=== PATIENT | male | born 1945 | race Caucasian/White ===

== ENCOUNTER 2018-06-03 15:05 | Inpatient (IN) | payer OTHER, MEDICARE ==
--- NOTE | 2018-06-03 15:50 | EDPHY ---
H & P Time Seen by Provider: 06/03/18 15:30 HPI/ROS: CHIEF COMPLAINT: Dizziness HISTORY OF PRESENT ILLNESS: Patient had an episode this morning when he felt dizzy at 7:30 a.m.. However he was able to walk and drive to his physical therapy appointment. He has been seeing physical therapy for the last 3 years after spine surgery. At the physical therapy office he got dizzy like he was going to"fall against the side"of the hallway and was slurring his words. When he laid down and went away after 2 or 3 min. He then drove himself to the primary care doctor's office and had a recurrent episode there of being dizzy and ataxic and expressive aphasia which lasted 2 or 3 min and went away when he lays down. Right now he says he just feels tired. Apparently his blood pressure was down to 92 systolic at his primary care office. Denies associated headache or weakness or numbness in extremities or visual symptoms. No chest pain or shortness of breath. REVIEW OF SYSTEMS: Eye: no change in vision ENT: no sore throat Cardiac: no chest pain or syncope Pulmonary: no cough or SOB Abdomen: no vomiting, diarrhea, abdominal pain Musculoskeletal: no back pain Skin: no rash Neuro: no headache Constitutional: no fever : no urinary symptoms A comprehensive 10 point review of systems is otherwise negative aside from elements mentioned in the history of present illness. PAST MEDICAL HISTORY: History of pulmonary embolism and DVT, and glaucoma, coronary disease, hypertension, hyperlipidemia. Spine surgery Social history: Here with spouse T 36.4 General Appearance: Alert and conversant, cooperative. Eyes: No scleral icterus. ENT, Mouth: Normal mucous membranes. Respiratory: Normal respiratory effort, breath sounds equal, lungs are clear to auscultation. Cardiovascular: irregular rate and rhythm. No murmur. Gastrointestinal: Abdomen is soft and non tender. Neurological: Alert, face symmetric, normal motor and sensory in extremities. [id number] normal bilaterally, no pronator drift, speech fluent. Skin: Warm and dry, no rashes. Musculoskeletal: No peripheral edema. Psychiatric: Not agitated. Emergency Department course/MDM: 1636: Negative head CT per Dr. Cardenas, discussed with Armando Greer, requested D-dimer screening for PE, admission and he will obtain cardiology consultation. D-dimer negative, head CT negative, symptoms resolved. Inpatient workup. Smoking Status: Former smoker Constitutional: Initial Vital Signs Heart Rate 66 06/03/18 15:09 Respiratory Rate 14 06/03/18 15:09 Blood Pressure 115/70 06/03/18 15:09 O2 Sat (%) 95 06/03/18 15:09 O2 Delivery Mode Room Air Allergies/Adverse Reactions: Sulfa (Sulfonamide Antibiotics) Allergy (Verified 06/03/18 15:13) sulfamethoxazole [From Bactrim] Allergy (Verified 06/03/18 15:13) trimethoprim [From Bactrim] Allergy (Verified 06/03/18 15:13) Home Medications: Medication Instructions Recorded Allopurinol [Allopurinol 300 MG 300 mg PO DAILY 07/24/15 (RX)] Bimatoprost 0.01% [Lumigan 0.01% 1 drop EACHEYE HS 07/24/15 (*)] Colestipol HCl [Colestid (*)] 3 gm PO BID 07/24/15 Dorzolamide HCl/Timolol Maleat 1 drop EACHEYE BID 07/24/15 [Cosopt Eye Drops] Ezetimibe [Zetia 10 MG (*)] 10 mg PO DAILY 07/24/15 Niacin [Slo-Niacin] 500 mg PO HS 07/24/15 Herbals/Supplements -Info Only 1 ea PO DAILY 06/03/18 Mupirocin [Mupirocin] 1 terence TP DAILY 06/03/18 [place]-3 Fatty Acids [Fish Oil 1000 2,000 mg PO HS 06/03/18 mg (*)] amLODIPine BESYLATE [Norvasc 5 mg 5 mg PO DAILY 06/03/18 (*)] clonazePAM [Clonazepam] 0.5 mg PO HS 06/03/18 Medical Decision Making - Diagnostics EKG Interpretation: 12-lead EKG interpreted by me; official reading is in computer system. My interpretation is atrial fibrillation rate of 56. Imaging Results: Imaging Impressions Head CT 06/03/18 15:45 Impression: No evidence for acute intracranial abnormality. Mild periventricular and deep hemispheric white matter change that can be seen with small vessel ischemic disease. Mild generalized cerebral atrophy. Results called to the ER and message left for Dr. Fabien Figueroa on 03 June 2018 at 1635 hours. Imaging: Discussed imaging studies w/ call worker Radiologist - Data Points Laboratory Results: Laboratory Results 06/03/18 15:40 06/03/18 15:40 06/03/18 06/03/18 06/03/18 15:44 15:41 15:40 WBC RBC Hgb POC Hgb 16.0 gm/dL gm/dL (13.7-17.5) Hct POC Hct 47 % % (40-51) MCV MCH MCHC RDW Plt Count MPV Neut % (Auto) Lymph % (Auto) [place] % (Auto) Eos % (Auto) Baso % (Auto) Nucleat RBC Rel Count Absolute Neuts (auto) Absolute Lymphs (auto) Absolute Monos (auto) Absolute Eos (auto) Absolute Basos (auto) Absolute Nucleated RBC Immature Gran % Immature Gran # PT INR APTT D-Dimer POC Sodium 136 mEq/L mEq/L (135-145) Sodium POC Potassium 3.7 mEq/L mEq/L (3.3-5.0) Potassium POC Chloride 99 mEq/L mEq/L (97-110) Chloride Carbon Dioxide Anion Gap POC BUN 16 mg/dL mg/dL (7-23) BUN Creatinine POC Creatinine 1.2 mg/dL mg/dL (0.7-1.3) Estimated GFR Glucose POC Glucose 95 mg/dL mg/dL (70-100) Calcium POC Troponin I 0.01 ng/mL ng/mL (0.00-0.08) NT-Pro-B Natriuret Pep 3120 pg/mL H pg/mL (0-450) 06/03/18 06/03/18 06/03/18 15:40 15:40 15:40 WBC 5.41 10^3/uL 10^3/uL (3.80-9.50) RBC 4.92 10^6/uL 10^6/uL (4.40-6.38) Hgb 16.0 g/dL g/dL (13.7-17.5) POC Hgb Hct 44.8 % % (40.0-51.0) POC Hct MCV 91.1 fL fL (81.5-99.8) MCH 32.5 pg pg (27.9-34.1) MCHC 35.7 g/dL g/dL (32.4-36.7) RDW 14.3 % % (11.5-15.2) Plt Count 95 10^3/uL L 10^3/uL (150-400) MPV 9.4 fL fL (8.7-11.7) Neut % (Auto) 56.3 % % (39.3-74.2) Lymph % (Auto) 31.4 % % (15.0-45.0) [place] % (Auto) 7.9 % % (4.5-13.0) Eos % (Auto) 3.1 % % (0.6-7.6) Baso % (Auto) 1.1 % % (0.3-1.7) Nucleat RBC Rel Count 0.0 % % (0.0-0.2) Absolute Neuts (auto) 3.04 10^3/uL 10^3/uL (1.70-6.50) Absolute Lymphs (auto) 1.70 10^3/uL 10^3/uL (1.00-3.00) Absolute Monos (auto) 0.43 10^3/uL 10^3/uL (0.30-0.80) Absolute Eos (auto) 0.17 10^3/uL 10^3/uL (0.03-0.40) Absolute Basos (auto) 0.06 10^3/uL 10^3/uL (0.02-0.10) Absolute Nucleated RBC 0.00 10^3/uL 10^3/uL (0-0.01) Immature Gran % 0.2 % % (0.0-1.1) Immature Gran # 0.01 10^3/uL 10^3/uL (0.00-0.10) PT 14.0 SEC SEC (12.0-15.0) INR 1.06 (0.83-1.16) APTT 26.2 SEC SEC (23.0-38.0) D-Dimer < 0.27 ug/mLFEU ug/mLFEU (0.00-0.50) POC Sodium Sodium 134 mEq/L L mEq/L (135-145) POC Potassium Potassium 3.9 mEq/L mEq/L (3.3-5.0) POC Chloride Chloride 99 mEq/L mEq/L (97-110) Carbon Dioxide 25 mEq/l mEq/l (22-31) Anion Gap 10 mEq/L mEq/L (8-16) POC BUN BUN 17 mg/dL mg/dL (7-23) Creatinine 1.2 mg/dL mg/dL (0.7-1.3) POC Creatinine Estimated GFR 59 Glucose 95 mg/dL mg/dL (70-100) POC Glucose Calcium 9.3 mg/dL mg/dL (8.5-10.4) POC Troponin I NT-Pro-B Natriuret Pep Medications Given: Sodium Chloride (Ns) 1,000 mls @ 100 mls/hr IV CONT JENARO Stop: 11/30/18 17:44 Last Admin: 06/03/18 18:01 Dose: 1,000 mls Discontinued Medications Rivaroxaban (Xarelto) 20 mg PO DAILY JENARO Stop: 11/30/18 17:59 Last Admin: 06/03/18 18:18 Dose: 20 mg Point of Care Test Results: Chemistry 06/03/18 06/03/18 15:44 15:41 POC Sodium 136 mEq/L mEq/L (135-145) POC Potassium 3.7 mEq/L mEq/L (3.3-5.0) POC Chloride 99 mEq/L mEq/L (97-110) POC BUN 16 mg/dL mg/dL (7-23) POC Creatinine 1.2 mg/dL mg/dL (0.7-1.3) POC Glucose 95 mg/dL mg/dL (70-100) POC Troponin I 0.01 ng/mL ng/mL (0.00-0.08) ISTAT H&H 06/03/18 15:44 POC Hgb 16.0 gm/dL gm/dL (13.7-17.5) POC Hct 47 % % (40-51) Departure - Departure Disposition: [facility] Inpatient Acute Clinical Impression: Dizziness Atrial fibrillation Qualifiers: Atrial fibrillation type: unspecified Qualified Code(s): I48.91 - Unspecified atrial fibrillation Condition: Fair
--- NOTE | 2018-06-03 15:55 | CPEKG ---
Test Reason : OPEN Blood Pressure : / mmHG Vent. Rate : 056 BPM Atrial Rate : 000 BPM P-R Int : 197 ms QRS Dur : 092 ms QT Int : 420 ms P-R-T Axes : 000 -14 023 degrees QTc Int : 406 ms Atrial fibrillation Confirmed by Fabien Figueroa ([id number]) on 06/03/2018 3:54:55 PM Referred By: Confirmed By:Fabien Figueroa
[2018-06-03 16:30] LABS: PLATELET COUNT 95 10^3/uL (150-400)
[2018-06-03 16:40] LABS: INR 1.06 (0.83-1.16)
[2018-06-03] MEDS ORDERED: ACETAMINOPHEN 325 MG TAB PO PRN (17:37)
[2018-06-03] MEDS ORDERED: ONDANSETRON 4 MG/2 ML VIAL IVP PRN (17:37)
[2018-06-03] MEDS ORDERED: ONDANSETRON DISINTEGRATING 4 MG TAB PO PRN (17:37)
[2018-06-03] MEDS ORDERED: diphenhydrAMINE 25 MG CAP PO PRN (17:37)
[2018-06-03] MEDS ORDERED: LORazepam 0.5 MG TAB PO PRN (17:37)
[2018-06-03] MEDS ORDERED: RIVAROXABAN 20 MG TAB PO SCH (18:00)
[2018-06-03] MEDS: NS 1,000 ML IV SCH (18:01)
--- NOTE | 2018-06-03 18:39 | SOAPPROG ---
[facility] Progress Note Assessment/Plan: Assessment: Cardiology consultation performed and dictated. 73 y/o man with CAD by EBCT scans and moderate PAD with 3-5 weeks of dizziness, worsening LAL and fatigue. Found today to be in afib with ventricular rates 40- 50bpm. Usually can walk 2-4 miles. Denies syncope or CP IMP/PLAN: 1)afib with slow ventricular rate REC: 1)start Xarelto 20mg PO qam. 2)transthoracic echo in AM to evaluate LVEF and valvular function 3)NPO after clear liquid breakfast 4)probably SAMIRA/CV tomorrow late morning or in afternoon 5)may need permanent pacemaker 6)check TSH and troponin in AM Thanks. Will follow with you. 06/03/18 18:36 Objective: Vital Signs Temp Pulse Resp BP Pulse Ox 36.4 C 60 18 110/63 96 06/03/18 17:47 06/03/18 17:47 06/03/18 17:47 06/03/18 17:47 06/03/18 17:47 PT 14.0 SEC (12.0-15.0) 06/03/18 15:40 INR 1.06 (0.83-1.16) 06/03/18 15:40 ICD10 Worksheet Patient Problems: Problems Problem Status Onset Atrial fibrillation Acute Dizziness Acute C. difficile diarrhea Acute 11/04/15 Clostridium difficile infection Acute Lumbar back pain Acute Lumbar stenosis Acute
--- NOTE | 2018-06-03 19:03 | SOAPPROG ---
SOAP Progress Note Assessment/Plan: Assessment: Plan: 06/03/18 19:01 symptomatic jonas a fib with hypotension. Appreciate cardiology input. Plan echo/TTE/poss CV consider pacer if not improving with rate. I believe his timolol eye drops are aggravating the jonas, will hold for now. + h/o profound jonas with Bystolic. See h&P Subjective: Admits to fatigue/weakness/dizziness this am. Objective: Vital Signs Temp Pulse Resp BP Pulse Ox 36.4 C 60 18 110/63 96 06/03/18 17:47 06/03/18 17:47 06/03/18 17:47 06/03/18 17:47 06/03/18 17:47 PT 14.0 SEC (12.0-15.0) 06/03/18 15:40 INR 1.06 (0.83-1.16) 06/03/18 15:40 Gen: fatigued earlier, better now HEENT: less projected anxiety now than earlier, pupils quite dilated in office Lungs: diminished but clear Bilaterally Heart: irreg irreg with jonas. Office EKG afib with rate of 44 no ischemic changes Abd + bs soft LE's trace edema Skin RLE wound with gradual marked improvement ICD10 Worksheet Patient Problems: Problems Problem Status Onset Atrial fibrillation Acute Dizziness Acute C. difficile diarrhea Acute 11/04/15 Clostridium difficile infection Acute Lumbar back pain Acute Lumbar stenosis Acute
[2018-06-03] MEDS: MUPIROCIN 2% 22 GM OINT TP SCH (19:43)
--- NOTE | 2018-06-03 20:00 | GHP ---
DATE OF ADMISSION: 06/03/2018 REASON FOR ADMISSION: Symptomatic new finding of atrial fibrillation with bradycardia and hypotensio n. HISTORY OF PRESENT ILLNESS: The patient states he was feeling well until he woke up this morning wit h a feeling of lethargy, tiredness, and dizziness. His checked his blood pressure and found him to be around 90-105 systolic, with a slower heart rate. He was encouraged to eat more salty foods a nd drink more water. This did not improve his symptoms, and he came into the office today. In prese ntation to the office, he was quite weak, needing some assistance walking down the hallway. His satu ration was 89%. His distal extremities were somewhat cool. He looked uncomfortable. He was a bit b ewildered and below his typical bright neurologically intact self. He was not able to pronounce the medicines he was typically taking while in the sitting position but could pronounce them easily while lying down. He was found to be quite bradycardic on auscultation, and EKG confirmed atrial fibrilla tion with a heart rate of 44 beats per minute. In office blood pressure in the 80s to 90s systolic, diastolic pressures in the 50s and 60s. Given these findings, he was sent to the ER for further eval uation. In the ER, findings were confirmed. Blood pressure was a bit more improved. D-dimer was ne gative as there was some outside concern for a pulmonary emboli. He is admitted given his symptoms, and will be having cardiology consultation. ALLERGIES: Sulfa, antibiotics. CURRENT MEDICATIONS: Include mupirocin ointment to wound, timolol-based eye drops 2 drops twice a da y bilateral eyes, clonazepam 0.5 mg at bedtime, vitamin D 2000 international units daily, prebiotic a nd probiotic treatment daily, Colace p.r.n. constipation, fish oil high dose 2 tablets twice a day, i buprofen p.r.n. pain, magnesium 2 tablets daily, niacin 500 mg daily, Lumigan eye drops once daily ellen th eyes, colestipol 1 g 3 tablets twice a day, allopurinol 300 mg daily, Zetia 10 mg daily, amlodipin e 2.5 mg daily. PAST SURGICAL HISTORY: Laminectomy/microdiskectomy in 1983, oral surgery for his gums, laser surgery for glaucoma, spinal surgery more recently. SOCIAL HISTORY: Non-tobacco user. Alcohol moderate consumption intermittently. FAMILY HISTORY: Father at 78 from pneumonia. Mother at 86 from probable small stroke. He has a sister who has autism, in her late 70s. He was born in [place]. REVIEW OF SYSTEMS: He admits to fatigue over the past several weeks. He has been dealing with a sev ere laceration to his right lower extremity that was repaired in the ER with complicated sutures and then wound management has been gradually improving. He has been on lots of antibiotics for this wanda tment. He has not had fever or chills. He admits lightheadedness today. No headache. He denies ac quinault visual change. He has noted some speaking dysfunction acutely today. This seems to be intermitt ent. He does admit to a vague sense of shortness of breath with exertion. He also admits to a vague sense of chest pressure that is intermittent. Nothing heavy pressing or constant. He did have an e pisode of nausea today. No vomiting. His appetite until today was fairly normal. No change in marilyn l pattern. He denies any unusual urinary symptoms. He has not had acute musculoskeletal complaints. Skin with his right lower extremity wound has been gradually improving. Underlying psoriasis has b een stable with photodynamic therapy treatments. PHYSICAL EXAMINATION: VITAL SIGNS: Blood pressure currently 110/63 in office, 80-90 systolic. Hear t rate currently 50 to 60 in office, 44 beats per minute. He is now 96% on room air. Temperature is 36.4. GENERAL: Pleasant, far more comfortable-appearing male. HEENT: Pupils are symmetric. Spee ch is intact and clear. Oropharynx is benign. NECK: Without masses. No jugular venous pressure el evation. LUNGS: Diminished breath sounds in bases, otherwise clear. HEART: Irregularly irregular rhythm with borderline bradycardia. No murmurs appreciated. ABDOMEN: Positive bowel sounds. Soft, nontender, nondistended. No guarding, rebound, or masses. SKIN: Warm, dry, intact. Healing wound with eschar. RIGHT LOWER EXTREMITY: Scattered psoriatic skin irritation, stable finding. MUSCULOSK ELETAL: Without acute joint erythema, warmth, or swelling. : Deferred. LABORATORY DATA: CBC: White count 5.41, hemoglobin 16.0, platelets 95. D-dimer is undetectable. I NR 1.06. Metabolic panel grossly unremarkable. Creatinine 1.2. Troponin negative at 0.01. CT head negative for acute intracranial abnormalities. EKG done in the ER: Atrial fibrillation with bradyc ardia. No ST-segment elevation. Rhythm rate 56 beats per minute. ASSESSMENT: 1. Bradycardia, hypotension, new atrial fibrillation, likely all linked together. I suspect his nanda olol eyedrops were aggravating the bradycardia. They are wearing out of the system at this point, wh ich may explain some of the improvement in his heart rate. He has had cardiology consultation with Drea Rosas. The plan is for transthoracic echocardiogram with followup SAMIRA and possible CV tomor row. This was discussed in detail with the patient, who is in agreement. If his bradycardia continu es, consideration for pacemaker placement. 2. History of hypertension, currently well controlled. 3. History of sensitivity to beta blockers including Bystolic, causing profound bradycardia as an ou tpatient, supporting possible link that timolol is adding to his symptomatology. Will hold his timol ol eyedrops for his glaucoma currently, and discuss this further with Dr. Centeno as an outpatient. 4. Psoriasis, stable. 5. Right lower extremity wound. This is improving. Will have wound care look at while he is in the hospital. Given the complexity of his current symptoms and findings, it is anticipated he will stay in the hosp ital for greater than 2 midnights. /[id number]/MODL
[2018-06-03] MEDS ORDERED: NIACIN ER 500 MG TAB.ER PO SCH (21:00)
[2018-06-03] MEDS ORDERED: clonazePAM 0.5 MG TAB PO SCH (21:00)
[2018-06-03] MEDS ORDERED: BIMATOPROST 0.01% 2.5 ML OPHT.BTL EACHEYE SCH (21:00)
[2018-06-03] MEDS ORDERED: OMEGA-3 FATTY ACIDS 1,000 MG CAP PO SCH (21:00)
[2018-06-03] MEDS: COLESTIPOL HCL 1 GM TAB PO SCH (21:44)
[2018-06-04 04:41] LABS: PLATELET COUNT 77 10^3/uL (150-400)
--- NOTE | 2018-06-04 05:52 | GCON ---
CARDIOLOGY CONSULT DATE OF CONSULTATION: 06/03/2018 REASON FOR CONSULTATION: Evaluate gentleman with 3-5 weeks of dizziness, worsening shortness of gee th and near syncope and fatigue, found to be in atrial fibrillation with bradycardia. HISTORY OF PRESENT ILLNESS: I was asked by Dr. Vipul Cabrera to consult for the above reasons. T he patient is a 73-year-old gentleman with a history of coronary atherosclerosis, followed by serial heart scans. He also has an abnormal vascular ROSANNA suggesting PAD. Otherwise, he has had no previous heart problems. He did have an echo in December of 2014, which demonstrated normal LV function with mild -to-moderate aortic insufficiency and mild tricuspid insufficiency. He normally can walk 2-4 miles w ithout symptoms. For the last 3-5 weeks, he feels he has had no energy with worsening dyspnea on exe rtion and dizzy spells. He called his PCP and went in today and was found to be in atrial fibrillati on with a ventricular rate of 40 to 50 beats per minute. He was admitted for further evaluation. He reports no syncope or TIA symptoms. Of note, he did cut his right beebe 5 weeks ago and has a mild c ellulitis, which has been improving. He reports no systemic fevers or chills. PAST MEDICAL HISTORY: Previous DVT with pulmonary embolus, hypertension, palpitations, PAD, coronary atherosclerosis, glaucoma and previous C difficile colitis. PAST SURGICAL HISTORY: Spine fusion in 2014. CURRENT MEDICATIONS: Allopurinol 300 mg per day, Xarelto 20 mg per day. ALLERGIES: Sulfa. SOCIAL HISTORY: Patient is . He does not smoke and has 2-3 glasses of wine per day. FAMILY HISTORY: Unremarkable for premature coronary artery disease. REVIEW OF SYSTEMS: The patient reports no recent fevers, chills, or weight change. He reports no GI bleed symptoms such as hematemesis, melena, or bright red blood per rectum. Rest of 10-point review of systems is negative. PHYSICAL EXAM: VITAL SIGNS: Afebrile, pulse 60 and irregularly irregular, blood pressure 110/63, re spirations 20, satting 96% on room air. GENERAL: A normal-appearing gentleman in no acute distress without chest pain or using accessory respiratory muscles. EYES: Pupils equal, reactive to light. E NT: Oral mucosa with no cyanosis. Jugular venous pressure to 7 cm. Carotid pulses 2+ bilaterally w ith no obvious bruits. No thyromegaly noted. LUNGS: Clear to auscultation bilaterally without rale s, rhonchi, or wheezing. HEART: Distant heart sounds, irregularly irregular with bradycardic rate. No obvious murmurs or S3 heard. ABDOMEN: Soft and nontender. No guarding or rebound. No obvious hepatosplenomegaly or ascites. EXTREMITIES: 1+ peripheral pulses including femoral and pedal pulses. No edema noted. MUSCULOSKELETAL: No scoliosis. NEURO: Normal affect and mood. SKIN: No cyanos is or bleeding. NECK: No nuchal rigidity. LABS: Sodium 134, potassium 3.9, chloride 99, bicarb 25, BUN 17, creatinine 1.2, glucose 95. Tropon in 0.01. Hematocrit 45. INR 1.06. IMPRESSION: A 73-year-old gentleman with 3-5 weeks of worsening dizziness, fatigue, and dyspnea on e xertion with near syncope. I am concerned if symptoms could be related to cardiac arrhythmias, eithe r his atrial fibrillation and/or symptomatic bradycardia needing a pacemaker soon. There is no sugge stion of heart failure or recent MN. RECOMMENDATIONS: 1. Agree with Xarelto 20 mg per day. 2. Would repeat a troponin level in the morning and check a TSH to make sure he is not hypothyroid. 3. Would recommend a transthoracic echocardiogram first thing in the morning to evaluate LV function and valvular function. 4. As long as there is no surprise of LV dysfunction or valvular abnormalities, would recommend he g et a SAMIRA cardioversion tomorrow afternoon. 5. He may come out of the cardioversion bradycardic, requiring a pacemaker. Thank you for allowing me to participate in the care of Mr. Mcclendon. Cardiology Service will follow a long closely with you during the hospitalization. /[id number]/MODL
[2018-06-04] MEDS: NS 1,000 ML IV SCH (06:02)
--- NOTE | 2018-06-04 08:38 | SOAPPROG ---
SOAP Progress Note Assessment/Plan: Assessment: 73 yo male admitted yesterday for bradycardia, hypotension and new onset atrial fibrillation. HR in the office yesterday was in the 40s, BP has been SBP 80s-90s and DBP in the 50s. Of note, pt has been using timolol eye gtts and has historically been extremely sensitive to beta blockers, so there has been suspicion of its contribution to his bradycardia. Is being seen by cardiology for further workup and plan. Plan: Hypotension- BP slightly better this AM in the low 100s, continue to monitor. Suspect this is r/t the bradycardia and afib Bradycardia- holding timolol gtts which has resulted in a slight increase in HR - now in the 50s-60s. SAMIRA and TTE pending this AM with possible cardioversion and possible pacemaker placement New onset atrial fibrillation- as noted above - TTE and SAMIRA pending with possible cardioversion and possible pacer placement Hypothyroidism- TSH 5, will start levothyroxine this AM Wound to RLE- much improved, wound care evaluating today DVT prophylaxis- xarelto Dispo- will likely stay today for workup and possible pacer placement 06/04/18 08:38 Subjective: Isael is resting in bed this AM. Says he is feeling much better than yesterday, does c/o slight headache. Was able to walk to the bathroom with stand by assist this AM and didn't feel dizzy or lightheaded. Feels his speech and word finding is back to baseline. Objective: Vital Signs Temp Pulse Resp BP Pulse Ox 36.4 C 73 18 103/65 92 06/04/18 07:18 06/04/18 07:18 06/04/18 07:18 06/04/18 07:18 06/04/18 07:18 Laboratory Results 06/04/18 03:03 06/04/18 03:03 06/03/18 06/04/18 06/05/18 05:59 05:59 05:59 Intake Total 1420 Balance 1420 PT 14.0 SEC (12.0-15.0) 06/03/18 15:40 INR 1.06 (0.83-1.16) 06/03/18 15:40 Gen- alert, oriented, conversing appropriately Head- normocephalic, atraumatic EENT- PEERL, EOMI CV- irregularly irregular rhythm, bradycardic in the 50s, no murmurs, rubs, gallops Resp- LCTAB, no wheezing, rhonchi, rales Abd- SNT, nondistended, + bowel sounds Extremities- no peripheral edema Skin- warm and dry ICD10 Worksheet Patient Problems: Problems Problem Status Onset Atrial fibrillation Acute Dizziness Acute C. difficile diarrhea Acute 11/04/15 Clostridium difficile infection Acute Lumbar back pain Acute Lumbar stenosis Acute
[2018-06-04] MEDS ORDERED: LEVOTHYROXINE 25 MCG TAB PO SCH (08:45)
--- NOTE | 2018-06-04 08:54 | WOCRNPDOC ---
WOCRN Advanced Assessment Note - Skin Integrity Problem, Advanced Assess Right Anterior Lower Leg Dressing Type: Telfa Dressing Description: Clean/Dry, Intact Exudate Amount: Scant Exudate Characteristic(s): Serosanguinous Integumentary Issue Intervention: Dressing Removed, Hydrogel Applied Antonia Wound Tissue: Xerotic Wound Bed Constitution: Hypergranulation (50%), Loose Slough (50%), Stable Eschar (100% of edges) Wound Edges: Attached Site Measurement - Head-to-Toe Length X Width X Depth (cm): 1.4x3.2xraised Skin Integrity Problem Comment: Appears to be laceration/skin tear that per patient and his is approximately 8 weeks old. The edges of the wound are comprised of stable eschar. The open area is at the bottom of the U shaped wound has hypergranulated and has some loose slough. Recommend D/Cing mupriocin cream and changing from telfa to hydrofera blue foam (HFB). Will begin remoistening the eschar with wound gel, and the HFB will also reduce the moisture build up in the open area. This will in turn help reduce the slough and hypergranulation. Discussed plan and findings with patient, his and RN Leobardo. Wound care will round again early next week.
[2018-06-04] MEDS ORDERED: Herbals/Supplements -Info Only PO SCH (09:00)
[2018-06-04] MEDS: MUPIROCIN 2% 22 GM OINT TP SCH (09:22)
[2018-06-04] MEDS ORDERED: ATROPINE SULFATE 1 MG/10 ML SYR IVP ONE (09:56)
[2018-06-04] MEDS ORDERED: NS 1,000 ML IV ONE (09:56)
[2018-06-04] MEDS: EZETIMIBE 10 MG TAB PO SCH ×2 (10:15→14:48)
[2018-06-04] MEDS: COLESTIPOL HCL 1 GM TAB PO SCH ×2 (10:15→14:47)
[2018-06-04] MEDS: ALLOPURINOL 300 MG TAB PO SCH ×2 (10:15→14:48)
--- NOTE | 2018-06-04 11:25 | SOAPPROG ---
SOAP Progress Note Assessment/Plan: Assessment: 1. New onset atrial fibrillation. This in and of itself may explain the patient 's symptoms. Interestingly, at baseline, he is relatively bradycardic. This is certainly concerning as he may develop significant bradycardia following bahai of sinus rhythm. 2. Hypertension. Currently on Juan Diego inhibitor therapy. 3. Right lower extremity wound. He sustained this by walking into a coffee table. This is currently healing although slowly. Plan: 1. He will have a regular echocardiogram. 2. Provided this is normal we will plan for a SAMIRA/cardioversion later today. 3. Further recommendations will be made pending the results of the above studies /treatment. 06/04/18 11:24 Subjective: The patient was seen and examined. His chart was reviewed. Today he states he feels about at his baseline. His predominant complaints were symptoms of fatigue, effort intolerance and exertional dyspnea. He had no anginal quality chest discomfort. He continues to be in a relatively slow atrial fibrillation. On telemetry he has not had any pauses. Objective: Vital Signs Temp Pulse Resp BP Pulse Ox 36.4 C 73 18 103/65 92 06/04/18 07:18 06/04/18 07:18 06/04/18 07:18 06/04/18 07:18 06/04/18 07:18 Laboratory Results 06/04/18 03:03 06/04/18 03:03 06/03/18 06/04/18 06/05/18 05:59 05:59 05:59 Intake Total 1420 Balance 1420 PT 14.0 SEC (12.0-15.0) 06/03/18 15:40 INR 1.06 (0.83-1.16) 06/03/18 15:40 Physical Exam - Physical Exam General Appearance: WD/WN, no apparent distress Neck: non-tender, full range of motion Respiratory: lungs clear, normal breath sounds, No respiratory distress, No accessory muscle use, No decreased breath sounds Cardiac/Chest: irregularly irregular, No edema, No gallop, No JVD Peripheral Pulses: 2+: carotid (R), carotid (L) Abdomen: normal bowel sounds, non-tender Male Genitalia: deferred Rectal: deferred Neuro/Psych: alert, oriented x 3 ICD10 Worksheet Patient Problems: Problems Problem Status Onset Atrial fibrillation Acute Dizziness Acute C. difficile diarrhea Acute 11/04/15 Clostridium difficile infection Acute Lumbar back pain Acute Lumbar stenosis Acute
--- NOTE | 2018-06-04 11:57 | ECHO ---
[email or web address] [address] [address] Main: [phone] Fax: Transthoracic Echocardiogram Name: MICHAEL HORNER MR#: [id number] Study Date: 06/04/2018 Study Time: 09:54 AM Date of : 1945 Age: 73 year(s) Height: 180.3 cm (71 in.) Weight: 96.16 kg (212 lb.) BSA: 2.16 m2 Gender: Male Examination: Echo Indication: New onset of Atrial Fibrillation Image Quality: Contrast: Requested by: Armando Greer BP: 103 mmHg/65 mmHg Heart Rate: Rhythm: Atrial fibrillation Indication: New onset of Atrial Fibrillation Procedure Staff Network Support: Reed Morgan RDCS Reading Physician: Armando Sullivan MD Requesting Provider: Conclusions: Normal size left ventricle. Normal global systolic LV function. EF is 77 %. The left atrial size is in the upper limits of normal.. The mitral valve is normal in appearance. Trivial to mild mitral regurgitation. The aortic valve is normal in appearance. No aortic valve stenosis is present. Mild to moderate aortic valve regurgitation. The aorta is normal. No old studies for comparison. Measurements: Chambers Valvular Assessment AV/MV Valvular Assessment TV/PV Normal Normal Normal Name Value Range Name Value Range Name Value Range Ao Concepcion (MM): 3.9 cm (2.2 cm-3.7 AV Vmax: 1.10 m/s (1 m/s-1.7 TR Vmax: 2.74 mm/s ( - ) cm) m/s) TR PGmax: 30 mmHg ( - ) IVSd (2D): 1.1 cm (0.6 cm-1.1 AV maxP mmHg ( - ) syst. PAP: 35 mmHg ( - ) cm) LVOT Vmax: 0.83 m/s (0.7 m/s-1.1 PV Vmax: 0.84 m/s (0.6 m/s-0.9 LVDd (2D): 4.2 cm (4.2 cm-5.9 m/s) m/s) cm) LYN (Vmax): 2.6 cm2 ( - ) PV PGmax: 3 mmHg ( - ) LVDs (2D): 2.3 cm (2.1 cm-4 AR (PHT): 696 ms ( - ) cm) MV E Vmax: 0.87 m/s ( - ) LVPWd (2D): 1.1 cm (0.6 cm-1 MV A Vmax: 0.36 m/s ( - ) cm) MV E/A: 2.42 ( - ) LVOTd 2.1 cm 2.1 cm mm MV meanP mmHg ( - ) LVEF (2D): 77 (>=54 %) Continued Measurements: Patient: MICHAEL HORNER Study Date: 06/04/2018 Page 1 of 2 09:54 AM Chambers Valvular Assessment AV/MV Valvular Assessment TV/PV Name Value Name Value Name Value LADs Lon.4 cm MV E' Septal: 0.10 m/s CVP (est.): 5 mmHg LA Area: 22.4 cm2 MV E/E' Septal: 8.40 LA Volume: 70 ml MV E/E' Lateral: 8.50 LA Volume Index: 32.4 ml/m2 MV VTI: 28.60 cm AR Vmax: 4.15 cm/s AR VTI: 262.0 cm Findings: Left Ventricle: Normal size left ventricle. No LV hypertrophy. Normal global systolic LV function. EF is 77 %. No regional wall motion abnormality. Normal diastolic LV function. Right Ventricle: Normal size right ventricle. Normal RV function. Left Atrium: The left atrial size is in the upper limits of normal.. Right Atrium: The right atrium is normal in size. Mitral Valve: The mitral valve is normal in appearance. Trivial to mild mitral regurgitation. Aortic Valve: The aortic valve is normal in appearance. No aortic valve stenosis is present. Mild to moderate aortic valve regurgitation. Tricuspid Valve: The tricuspid valve appears normal. Mild tricuspid regurgitation is present. Pulmonic Valve: The pulmonic valve is normal in appearance and function. Aorta: The aorta is normal. Pericardium: No pericardial effusion. (No Signature Object) Patient: MICHAEL HORNER Study Date: 06/04/2018 Page 2 of 2 09:54 AM [id number]
[2018-06-04] MEDS ORDERED: LIDOCAINE 2% 100 MG/5 ML SYR ONE (12:56)
[2018-06-04] MEDS ORDERED: SUCCINYLCHOLINE CHLORIDE 200 MG/10 ML SYR IVP ONE (12:56)
[2018-06-04] MEDS ORDERED: PROPOFOL 200 MG/20 ML VIAL ONE (12:56)
--- NOTE | 2018-06-04 12:56 | PDHPUP ---
History & Physical Update H&P update statement: This history and physical update is based on an assessment of the patient which was completed after admission or registration (within 24 hours), but prior to the surgery/procedure. H&P update: H&P reviewed & patient examined, no change in patient's condition since H&P completed
[2018-06-04] MEDS ORDERED: ACETAMINOPHEN 500 MG TAB PO PRN (13:16)
[2018-06-04] MEDS ORDERED: NALOXONE HCL 0.4 MG/ML INJ IVP PRN (13:16)
--- NOTE | 2018-06-04 13:16 | PDANEPAE ---
ANE History of Present Illness oliva/cv for a-fib ANE Past Medical History - Cardiovascular History Hx Hypertension: Yes Hx Arrhythmias: No Hx Chest Pain: No Hx Coronary Artery / Peripheral Vascular Disease: Yes Hx CHF / Valvular Disease: No Hx Palpitations: No Cardiovascular History Comment: AORTIC VALVE DX - Pulmonary History Hx COPD: No Hx Asthma/Reactive Airway Disease: No Hx Recent Upper Respiratory Infection: No Hx Oxygen in Use at Home: No Hx Sleep Apnea: Yes Pulmonary History Comment: MERYL - Neurologic History Hx Cerebrovascular Accident: No Hx Seizures: No Hx Dementia: No - Endocrine History Hx Diabetes: No - Renal History Hx Renal Disorders: No - Liver History Hx Hepatic Disorders: No - Neurological & Psychiatric Hx Hx Neurological and Psychiatric Disorders: Yes Neurological / Psychiatric History Comment: VISUAL MIGRAINES - Cancer History Hx Cancer: No - Congenital Disorder History Hx Congenital Disorders: No - GI History Hx Gastrointestinal Disorders: No Gastrointestinal History Comment: INTERMITTENT CONSTIPATION - Other Health History Other Health History: GLAUCOMA. SCIATICA. PSORIASIS. DVT/PE 10/2013 AFTER LONG FLIGHT. TREATED WITH RX FOR 12 MONTHS - Chronic Pain History Chronic Pain: Yes (LT CALF) - Surgical History Prior Surgeries: LAMINECTOMY L5-S-1. T&A. GUM SURGERY ANE Review of Systems Review of Systems: ANE Patient History - Allergies Allergies/Adverse Reactions: Sulfa (Sulfonamide Antibiotics) Allergy (Verified 06/03/18 15:13) sulfamethoxazole [From Bactrim] Allergy (Verified 06/03/18 15:13) trimethoprim [From Bactrim] Allergy (Verified 06/03/18 15:13) - Home Medications Home medications: home medication list seen and reviewed Home Medications: Allopurinol [Allopurinol 300 MG (RX)] 300 mg PO DAILY 07/24/15 [Last Taken 06/02] Bimatoprost 0.01% [Lumigan 0.01% (*)] 1 drop EACHEYE HS 07/24/15 [Last Taken 04/14 20:30] Colestipol HCl [Colestid (*)] 3 gm PO BID 07/24/15 [Last Taken 08/07/15 20:30] Dorzolamide HCl/Timolol Maleat [Cosopt Eye Drops] 1 drop EACHEYE BID 07/24/15 [ Last Taken 08/08/15 05:00] Ezetimibe [Zetia 10 MG (*)] 10 mg PO DAILY 07/24/15 [Last Taken 06/02/18] Niacin [Slo-Niacin] 500 mg PO HS 07/24/15 [Last Taken 08/07/15 20:00] Herbals/Supplements -Info Only 1 ea PO DAILY 06/03/18 [Last Taken Unknown] Mupirocin [Mupirocin] 1 terence TP DAILY 06/03/18 [Last Taken Unknown] [place]-3 Fatty Acids [Fish Oil 1000 mg (*)] 2,000 mg PO HS 06/03/18 [Last Taken Unknown] amLODIPine BESYLATE [Norvasc 5 mg (*)] 5 mg PO DAILY 06/03/18 [Last Taken ] clonazePAM [Clonazepam] 0.5 mg PO HS 06/03/18 [Last Taken Unknown] - NPO status NPO Status: no food or drink >8 hours - Anes Hx Anes Hx: no prior problems - Smoking Hx Smoking Status: Former smoker Marijuana use: No - Alcohol Use Alcohol Use: Rarely - Family Anes Hx Family Anes Hx: none ANE Labs/Vital Signs - Labs Result Diagrams: 06/04/18 03:03 06/04/18 03:03 - Vital Signs Blood Pressure: 103/65 Heart Rate: 73 Respiratory Rate: 18 O2 Sat (%): 92 Height: 180.34 cm Weight: 96.162 kg ANE Physical Exam - Airway Neck exam: decreased ROM Mallampati Score: Class 2 Mouth exam: normal dental/mouth exam - Pulmonary Pulmonary: no respiratory distress - Cardiovascular Cardiovascular: regular rate and rhythym - ASA Status ASA Status: III ANE Anesthesia Plan Anesthesia Plan: GA with mask Total IV Anesthesia: Yes
--- NOTE | 2018-06-04 13:17 | POSTANESTH ---
Post Anesthetic Evaluation Cardiovascular Status: Normal, Stable Respiratory Status: Normal, Stable Level of Consciousness/Mental Status: Can Participate in Eval Pain Control: Adequate, Prn Tx Ordered Nausea/Vomiting Control: Adequate, Prn Tx Ordered Complications Possibly Related to Anesthesia: None Noted
--- NOTE | 2018-06-04 13:18 | PDTEE1 ---
SAMIRA Cardioversion Procedure Procedure: electrical cardioversion Indications: atrial fibrillation Anticoagulation: eliquis Procedural Details: Pads were placed in anterior-posterior position. SAMIRA probe was advanced and standard images obtained. There is no evidence of left atrial or left atrial appendage thrombus. Synchronized cardioversion attempt #1: 200J Results: normal sinus rhythm Conclusions: successful SAMIRA cardioversion Patient Problems: Problems Problem Status Onset Atrial fibrillation Acute Dizziness Acute C. difficile diarrhea Acute 11/04/15 Clostridium difficile infection Acute Lumbar back pain Acute Lumbar stenosis Acute
--- NOTE | 2018-06-04 13:46 | ASMTCMCOM ---
CM Note CM Note Notes: Patient admitted with new onset A-fib. He had a successful SAMIRA cardioversion this afternoon. Cardiology will make further recommendations. Patient is normally independent, and lives with his . I don't anticipate any d/c needs but Case Management available if this changes. Date Signed: 06/04/2018 01:45 PM Electronically Signed By:Macarena Nolasco RN
--- NOTE | 2018-06-04 14:49 | PDMN ---
Medical Necessity Medical necessity: Pt meets IP criteria per MD & MCG M-505; est los >2 mn for eval/tx of new-onset AFIB w/bradycardia & hypotension; requiring further workup/ cardiac monitoring w/possible pacer placement; per H&P & order 06/03/18
--- NOTE | 2018-06-04 15:15 | ECHO ---
[email or web address] [address] [address] Main: [phone] Fax: Transesophageal Echocardiography Name: MICHAEL HORNER MR#: [id number] Study Date: 06/04/2018 Study Time: 12:57 PM Date of : 1945 Age: 73 year(s) Height: ( ) Weight: ( ) BSA: Gender: Male Examination: SAMIRA Indication: Pre Cardioversion Image Quality: Contrast: Requested by: Herson Hilton Heart Rate: Rhythm: Atrial fibrillation BP: / Procedure Staff Family Medicine Physician: Reed Morgan RDCS Reading Physician: Herson Hilton MD Requesting Provider: SAMIRA Exam Details Measurements: Chambers Valvular Assessment AV/MV Valvular Assessment TV/PV Normal Normal Normal Name Value Range Name Value Range Name Value Range Additional Measurements: Findings: Left Ventricle: Normal global systolic LV function. Left Atrium: An agitated saline study was performed and was negative for intracardiac shunting. Left Atrial Appendage: Good color flow doppler in the left atrial appendage. No thrombus in left appendage. Mitral Valve: Mild to moderate mitral regurgitation. Aortic Valve: The aortic valve is tri-leaflet. Mild to moderate aortic valve regurgitation. Tricuspid Valve: The tricuspid valve appears normal. Pulmonic Valve: The pulmonic valve is normal in appearance and function. Aorta: Patient: MICHAEL HORNER Study Date: 06/04/2018 Page 1 of 2 12:57 PM The aorta is normal. Pericardium: No pericardial effusion. Exam Comments: Proceeded with successful elective DC cardioversion.. l1n (No Signature Object) Patient: MICHAEL HORNER Study Date: 06/04/2018 Page 2 of 2 12:57 PM [id number]
[2018-06-04 16:09] VITALS: BP 126/65
--- NOTE | 2018-06-04 17:20 | CPEKG ---
Test Reason : OPEN Blood Pressure : / mmHG Vent. Rate : 053 BPM Atrial Rate : 000 BPM P-R Int : 344 ms QRS Dur : 088 ms QT Int : 428 ms P-R-T Axes : 000 -09 032 degrees QTc Int : 402 ms Atrial fibrillation Confirmed by Joy Roberts ([id number]) on 06/04/2018 5:20:40 PM Referred By: Confirmed By:Joy Roberts
--- NOTE | 2018-06-04 17:29 | CPEKG ---
Test Reason : OPEN Blood Pressure : / mmHG Vent. Rate : 073 BPM Atrial Rate : 073 BPM P-R Int : 228 ms QRS Dur : 089 ms QT Int : 386 ms P-R-T Axes : 052 -14 032 degrees QTc Int : 426 ms Sinus rhythm Prolonged NV interval Compared with 06/04/2018 at 7:46 am, sinus rhythm has been restored Confirmed by Joy Roberts ([id number]) on 06/04/2018 5:28:38 PM Referred By: Confirmed By:Joy Roberts
[2018-06-04] MEDS ORDERED: RIVAROXABAN 20 MG TAB PO SCH (18:00)
--- NOTE | 2018-06-04 18:23 | SOAPPROG ---
SOAP Progress Note Assessment/Plan: Assessment: Plan: 06/03/18 19:01 symptomatic jonas a fib with hypotension. Appreciate cardiology input. Plan echo/TTE/poss CV consider pacer if not improving with rate. I believe his timolol eye drops are aggravating the jonas, will hold for now. + h/o profound jonas with Bystolic. See h&P 06/04/18 18:22 doing well, NSR and good BP. D/C home Objective: Vital Signs Temp Pulse Resp BP Pulse Ox 36.6 C 72 18 126/65 H 95 06/04/18 16:00 06/04/18 16:00 06/04/18 16:00 06/04/18 16:00 06/04/18 16:00 Laboratory Results 06/04/18 03:03 06/04/18 03:03 06/03/18 06/04/18 06/05/18 05:59 05:59 05:59 Intake Total 1420 Balance 1420 PT 14.0 SEC (12.0-15.0) 06/03/18 15:40 INR 1.06 (0.83-1.16) 06/03/18 15:40 ICD10 Worksheet Patient Problems: Problems Problem Status Onset Atrial fibrillation Acute Dizziness Acute C. difficile diarrhea Acute 11/04/15 Clostridium difficile infection Acute Lumbar back pain Acute Lumbar stenosis Acute
--- NOTE | 2018-06-05 05:43 | GDS ---
REASON FOR ADMISSION: Symptomatic atrial fibrillation with bradycardia. HOSPITAL COURSE: Patient was admitted due to finding of new onset of bradycardic atrial fibrillation with hypotension and some confusion. He was brought to the hospital via the emergency room with the assistance of his 's vehicle. His blood pressure improved by the time he was in the ER. Heart rate improved somewhat to the 50s or 60s. He had cardiology consultation with Dr. Rosas, who arrange d for a transthoracic then SAMIRA to cardioversion today, which was successful. Dr. Rogerio Hilton performed these procedures. The patient has remained in sinus rhythm, feeling much better with higher blood p ressure and higher overall heart rhythm. Given improvement, he will be discharged home. He will continue on Xarelto 20 mg daily. We will hol d his timolol-based eye drop through the weekend and see how his heart rate and blood pressure do. W e will anticipate resuming this on Thursday and see if there is a significant effect on his heart rhyth m based on reintroducing this eyedrop. Dr. Calero has been contacted, but only voice messages adilia e allowed to be left. Anticipate further dialogue regarding his glaucoma eyedrop regimen next week. He will have office followup next week. He will continue his regular medicines except for holding hi s Norvasc given his lower blood pressure, and will follow his pressures with observation measurements at home. /[id number]/MODL
== END 2018-06-04 18:41 | disposition home or self-care (01) | DRG 310 ==
LOC: F2W 16:36
PROVIDERS: ADMIT Internal Medicine; ATTEND Internal Medicine
PROC: B246ZZ4 Ultrasonography of Right and Left Heart, Transesophageal (ICD-10-PCS; principal; 2018-06-04)
PROC: 5A2204Z Restoration of Cardiac Rhythm, Single (ICD-10-PCS; principal; 2018-06-04)
DX: I48.91 Unspecified atrial fibrillation (principal); R00.1 Bradycardia, unspecified; I10 Essential (primary) hypertension; I25.10 Atherosclerotic heart disease of native coronary artery without angina pectoris; L40.9 Psoriasis, unspecified; Z23 Encounter for immunization; Z87.891 Personal history of nicotine dependence; Z98.1 Arthrodesis status; Z86.718 Personal history of other venous thrombosis and embolism; Z86.711 Personal history of pulmonary embolism
CPT/HCPCS: 82435-PO; 82565-PO; 82947-PO; 84132-PO; 84295-PO; 84484-PO; 84520-PO; 85014-PO; G0008; J0330; J0461; J2001; J2704

== ENCOUNTER → 2018-06-07 | Outpatient (CLI) | payer OTHER, MEDICARE | LOC: BHFA 09:00 | PROVIDERS: ATTEND Internal Medicine Cardiovascular Disease | DX: I48.91 Unspecified atrial fibrillation (principal) ==

== ENCOUNTER → 2018-06-08 | Outpatient (CLI) | payer OTHER, MEDICARE | LOC: BHFA 08:30 | PROVIDERS: ATTEND Internal Medicine Cardiovascular Disease | DX: I48.91 Unspecified atrial fibrillation (principal) | CPT/HCPCS: 78452; 93017; A9500; J2785 ==

== ENCOUNTER → 2018-06-09 | Outpatient (CLI) | payer OTHER, MEDICARE | LOC: BHFA 14:30 | PROVIDERS: ATTEND Internal Medicine Cardiovascular Disease | DX: I48.0 Paroxysmal atrial fibrillation (principal); I10 Essential (primary) hypertension; R00.1 Bradycardia, unspecified ==

== ENCOUNTER 2018-07-13 15:27 | Inpatient (IN) | payer OTHER, MEDICARE ==
--- NOTE | 2018-07-13 19:34 | GHP ---
DATE OF ADMISSION: 07/13/2018 REASON FOR ADMISSION: Atrial fib/flutter with hypotension and weakness. HISTORY: The patient is a 73-year-old male who came today to get his INR checked. He has a history of atrial fibrillation, but has been in a sinus rhythm these past several weeks. He states he was fe eling extremely fatigued with moderate lightheadedness for the last 24 hours. He historically has be en tracking his blood pressure at home and it was in the 120s systolic. He was seen in the office to day with shortness of breath and irregular heart rate, and a blood pressure that was 94/48. He is al ert, oriented, and appears normal, but states that he has been feeling somewhat uncomfortable for the last week. He has an appointment with Dr. 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 MEDICATIONS: Zetia 10 mg daily. Sildenafil p.r.n., allopurinol 300 mg daily, colestipol 1 g 3 table ts twice daily, Lumigan 0.01% solution 1 drop to right eye, niacin 500 mg daily, magnesium 200 mg 2 t ablets once daily, Probiotic daily, ibuprofen p.r.n., fish oil 2400 mg daily, Colace as needed, tierney min D3 4000 international units daily, clonazepam 0.5 mg at bedtime, mupirocin to his affected extrem ity 3 times daily, warfarin 5 mg alternating with 7.5 mg every other day, dorzolamide 2% solution 1 drop in both eyes twice daily, Lyrica 50 mg every 8 hours as needed. PAST MEDICAL HISTORY: Significant for glaucoma, gout, psoriasis, dyslipidemia, and atherosclerosis w ith a coronary calcium score of 1235. However, on his last scan, he had a 5% decline in his calcium score consistent with a low risk for an acute coronary event over the next year. PHYSICAL EXAM: GENERAL: Revealed a 73-year-old male, in no obvious distress. VITAL SIGNS: Blood p ressure upon repeat was 98/48. Pulse was 75 and irregular, oxygen saturation 95% on room air. HEENT : Pupils were equal and reactive. Throat was normal. LUNGS: Clear. HEART: Distant heart sounds with mildly irregular rhythm. He has a wound on his right leg which is bandaged. However, a photogr aph he took of the wound showed no evidence of drainage or infection at this time. He has full range of motion of extremities. IMPRESSION: Atrial fibrillation/flutter with hypotension, weakness, fatigue, wound on his right leg, which does not appear to be infected. PLAN: Will admit. Place on telemetry. Obtain a cardiology consultation. We will get a wound care consultation for his leg. I spoke with Dr. Hilton regarding possible approaches to treatment at this time. /[id number]/MODL
[2018-07-13 20:40] LABS: INR 1.9 (0.83-1.16); PROTIME(PATIENT) 21.9 SEC (12.0-15.0)
--- NOTE | 2018-07-14 09:26 | SOAPPROG ---
[facility] Progress Note Assessment/Plan: Assessment: Plan: 07/14/18 09:24 Atrial fib/flutter: to be seen by cardiology today for cardioversion. On coumadin. INR 1.9 last night. Didn't get any coumadin yesterday. Has been on coumadin for about a week, but had been on Xarelto continuously for a month previously. Switched to coumadin due to cost but no interruption in anticoagulation. Hypertension: initially hypotensive in office yesterday but hasn't been since arrival. Home readings tend to be mildly hypertensive. No no BP medication. REM sleep disturbance: uses 2 clonazepam at night and brought these from home. Skin wound: would like dressing changed today. Dispo: needs ongoing hospitalization due to symptomatic arrhythmia. Anticipate further evaluation, intervention today, possibly to include SAMIRA prior to cardioversion. 07/14/18 09:26 07/14/18 09:35 07/14/18 09:42 07/14/18 09:43 07/14/18 09:45 07/14/18 09:53 Subjective: Feeling better this morning. Not so tired. Has remained in atrial flutter with a slow rate. BP much better. Didn't get any of his usual medications last night. Objective: Vital Signs Temp Pulse Resp BP Pulse Ox 36.4 C 74 13 128/65 H 96 07/14/18 07:32 07/14/18 07:32 07/14/18 07:32 07/14/18 07:32 07/14/18 07:32 07/13/18 07/14/18 07/15/18 05:59 05:59 05:59 Intake Total 300 Balance 300 PT 21.9 SEC (12.0-15.0) H 07/13/18 19:40 INR 1.90 (0.83-1.16) H 07/13/18 19:40 General: awake, alert, pleasant, eating breakfast Neck: no masses, adenopathy Lungs: clear CV: irregularly irregular, rate controlled Extremities: no edema Skin: wound on RLE with serous drainage ICD10 Worksheet Patient Problems: Problems Problem Status Onset Atrial fibrillation Acute C. difficile diarrhea Acute 11/04/15 Clostridium difficile infection Acute Dizziness Acute Lumbar back pain Acute Lumbar stenosis Acute
[2018-07-14] MEDS ORDERED: PREGABALIN 50 MG CAP PO PRN (09:39)
[2018-07-14] MEDS ORDERED: COLESTIPOL HCL 1 GM TAB PO SCH (09:45)
[2018-07-14] MEDS ORDERED: Herbals/Supplements -Info Only PO SCH (10:00)
[2018-07-14] MEDS: EZETIMIBE 10 MG TAB PO SCH (11:07)
[2018-07-14] MEDS: DORZOLAMIDE 2% OPTH DROPS EACHEYE SCH ×2 (11:20→20:27)
--- NOTE | 2018-07-14 11:20 | PDMN ---
Medical Necessity Medical necessity: Pt meets IP criteria as of 07/13/2018 per and MCG M-505; est los > 2 mn for ongoing tx and management of atrial fibrillation/flutter with weakness and fatigue; requiring cardiac monitoring, further workup, cardiology consult with possible intervention.
[2018-07-14] MEDS: COLESTIPOL HCL 1 GM TAB PO SCH ×2 (11:25→20:31)
[2018-07-14] MEDS: ALLOPURINOL 300 MG TAB PO SCH (11:25)
[2018-07-14] MEDS ORDERED: WARFARIN SODIUM 5 MG TAB PO SCH ×2 (11:30→16:00)
--- NOTE | 2018-07-14 12:14 | WOCRNPDOC ---
WOCRN Advanced Assessment Note - Skin Integrity Problem, Advanced Assess Right Anterior Lower Leg Dressing Type: Open to Air Exudate Amount: None Integumentary Issue Intervention: Dressing Applied Wound Bed Constitution: Hypergranulation (100%) Wound Edges: Epithelizing Site Measurement - Head-to-Toe Length X Width X Depth (cm): 0.9x0.9xraised Skin Integrity Problem Comment: Healing laceration. Small openoing remains on medial/distal portion of U shaped wound. Cleaned with ns. Wound gel to wound bed covered with mepilex and then patient's own sticky telfa. Next dressing change due in 07/17. Patient's in room and all questions answered. Educated patient about wound care/healing.
--- NOTE | 2018-07-14 14:04 | ASMTCMCOM ---
CM Note CM Note Notes: 07/14/2018 Case Management Note Pt admitted for treatment of afib/flutter. Discussed with RN this morning. Pt may have an ablation or may have a pacemaker. Tests are underway. There are no identified case management d/c needs identified d/t pt age, marital status, employment status and independence with ADL's prior to admission. There are no therapy evals ordered at this time. Case Management d/c poc: anticipating independent with follow up as directed. Case Management available if needs change. Date Signed: 07/14/2018 02:03 PM Electronically Signed By:Teresa Thapa RN
[2018-07-14] MEDS ORDERED: NS 1,000 ML IV ONE (15:10)
[2018-07-14] MEDS ORDERED: BACITRACIN IRRIGATION/NS 50,000 UNITS/1,000 ML BTL IRR ONE (15:10)
[2018-07-14] MEDS ORDERED: IOPAMIDOL (ISOVUE-300) 50 ML VIAL ONE (15:48)
[2018-07-14] MEDS ORDERED: LIDOCAINE 1% 300 MG/30 ML SDV ONE (15:48)
[2018-07-14] MEDS ORDERED: fentaNYL 100 MCG/2 ML INJ ONE (15:49)
[2018-07-14] MEDS ORDERED: MIDAZOLAM 2 MG/2 ML VIAL ONE ×4 (15:49→17:16)
[2018-07-14] MEDS ORDERED: BUPIVACAINE 0.5% 30 ML SDV ONE (15:49)
[2018-07-14] MEDS ORDERED: ceFAZolin 2 GM/DEXTROSE 100 ML IV ONE (16:00)
--- NOTE | 2018-07-14 16:09 | PDPROPOC ---
Sedation Plan of Care Sedation Plan of Care: vital signs stable, mental status noted, patient educated of risks, benefits, alternatives, patient can tolerate sedation ASA Classification: ASA 2 Planned drugs: fentanyl, midazolam Mallampati Score: Class 1 Mallampati Reference Image: Patient passed 3-3-2 rule?: Yes
--- NOTE | 2018-07-14 16:24 | SOAPPROG ---
[facility] Progress Note Assessment/Plan: Assessment: This is a 73-year-old male has a history of atrial fibrillation. Additionally has a history of sick sinus syndrome with prior episodes of significant bradycardia as well as chronotropic insufficiency. He underwent a cardioversion on June 04 with oriental orthodox of sinus rhythm in improvement in his symptoms. He presents now with atrial flutter also with significant bradycardia and profound symptoms of fatigue. Fortunately, he has a structurally normal heart with really no significant valvular heart disease. Additionally, his stress test does not suggest significant ischemic heart disease. He and I talked about best options for management of his atrial arrhythmias. Specifically, we spoke of proceeding with referral for an ablation procedure. We also talked about implanting a permanent pacemaker using antiarrhythmic medications. I also discussed this case with electrophysiology who felt that either of these options was best. Following that discussion, I talked to the patient. Ultimately, we agreed to implant a permanent pacemaker followed by instituting antiarrhythmic medications. It should be noted that he is systemically anticoagulated with a near therapeutic INR. This is not a contraindication to implantation of a permanent pacemaker. The risks, benefits and alternatives of this plan were discussed with the patient. He is in agreement with proceeding. We will implant his pacemaker this afternoon and proceed with medical management following that. 07/14/18 16:24 Subjective: He is well known to me from my outpatient clinic. I last saw him on 2017. He has a history of both paroxysmal atrial fibrillation and paroxysmal atrial flutter. Additionally, he has a history of sick sinus syndrome and chronotropic insufficiency. At his baseline, he has a structurally normal heart with no indications of coronary artery disease. On June 09 when I saw him he was in sinus rhythm and feeling relatively well. He states that he has not been doing well now for about 5-7 days. He has had recurrent symptoms of lethargy, fatigue and exertional dyspnea. He is not able to climb a flight of stairs without stopping to have to rest. He has not had any chest pain, orthopnea, PND or edema. He notes no cough, fever chills or sweats. When he was in the office of his primary care doctor yesterday he was noted to be in atrial flutter with heart rates in the 50s. As result he has been admitted to the hospital. On telemetry he is in atrial flutter with heart rates in the 50s. Prior cardiovascular testing includes an echocardiogram from June 04. This demonstrates a normal ejection fraction 77% with mild left atrial enlargement. He had a normal appearing mitral valve with [id number] aortic regurgitation. He had a stress test done on June 07. He exercised for 3 min on the treadmill with poor heart rate response. He had no evidence of previous infarction or significant ischemia. He did have diaphragmatic attenuation. Objective: Vital Signs Temp Pulse Resp BP Pulse Ox 36.4 C 60 18 116/68 98 07/14/18 15:14 07/14/18 15:14 07/14/18 15:14 07/14/18 15:14 07/14/18 15:14 07/13/18 07/14/18 07/15/18 05:59 05:59 05:59 Intake Total 300 Balance 300 PT 21.9 SEC (12.0-15.0) H 07/13/18 19:40 INR 1.90 (0.83-1.16) H 07/13/18 19:40 Physical Exam - Physical Exam General Appearance: WD/WN, alert, no apparent distress EENT: PERRL/EOMI, normal ENT inspection, pharynx normal, TMs normal Neck: non-tender, full range of motion, supple, normal inspection Respiratory: chest non-tender, lungs clear, normal breath sounds Cardiac/Chest: normal peripheral pulses, regular rate, rhythm Peripheral Pulses: 2+: carotid (R), carotid (L), femoral (R), femoral (L), dorsalis-pedis (R), dorsalis-pedis (L) Abdomen: normal bowel sounds, non-tender, soft Male Genitalia: deferred Rectal: deferred Back: Normal inspection Skin: normal color, warm/dry Lymphatic: no adenopathy Extremities: normal range of motion, non-tender, normal inspection, normal capillary refill Neuro/Psych: no motor/sensory deficits, alert, normal mood/affect, oriented x 3 ICD10 Worksheet Patient Problems: Problems Problem Status Onset Atrial fibrillation Acute C. difficile diarrhea Acute 11/04/15 Clostridium difficile infection Acute Dizziness Acute Lumbar back pain Acute Lumbar stenosis Acute
--- NOTE | 2018-07-14 18:08 | CPIP ---
DATE OF PROCEDURE: 07/14/2018 INDICATIONS: Mr. Mcclendon is a 73-year-old previously healthy male who has a history of paroxysmal atr ial fibrillation as well as paroxysmal atrial flutter. Additionally, he has a history of sick sinus syndrome with symptomatic bradycardia. PROCEDURE: Implantation of a dual-chamber pacemaker. TECHNIQUE: Following informed consent, in the fasting state, the patient was brought to the cardiac catheterization laboratory. A time-out was performed prior to the procedure. Prophylactic antibioti cs were administered. The left chest was prepped and draped in the usual sterile fashion. 2% lidoca ine was infiltrated in the skin below the left clavicle, and a 3 cm incision was made. A venogram wa s performed, identifying a widely patent axillary subclavian system. Using 2 separate sticks in the modified Seldinger technique, access was gained to the axillary vein at the level of the 1st rib. Tw o individual 0.035 J wires were then positioned. Using the first of these J wires, an 8-Urdu sheat h was placed. This allowed us to pass the [employer] pacemaker lead deep within the right vent ricular apex. The lead was screwed in place, the sheath torn away, and the lead individually tested with excellent capture and sensing. The lead was then secured to the pacemaker pocket floor using 0 Ethibond. Using the remaining 0.035 J wire, a second 8-Urdu sheath was placed. The atrial lead wa s brought to the field and passed under fluoroscopy into the right atrial appendage where the lead wa s screwed into place, the sheath torn away, and the lead secured to the pacemaker pocket floor. The lead was also tested with excellent sensing. Capture was not performed as the patient was in rapid a trial flutter. At this point, the pocket was inspected, and all bleeders were cauterized, and then t he pocket was irrigated with antibiotic-containing solution. The pacemaker was brought to the field. Both leads were identified by serial number and affixed to the header according to land agent elayne delines. The pacemaker and the redundant portions of both leads were then placed in the pocket, and the pocket was closed initially with 2 layers of interrupted suture using 2-0 and 3-0 Vicryl and janel lly running Stratafix for the skin. Steri-Strips, dry dressing, and a pressure dressing were applied . DEVICE INFORMATION: The pacemaker is a [employer] Assurity MRI-compatible device, reference #P [id number], serial #[id number]. The atrial lead is a [employer] Tendril MRI-compatible device, reference #[id number], serial #[id number]. Ventricular lead is a [employer] Tendril MRI device, reference #[id number], length 58 cm, serial #[id number]. In the ventricle, capture was 0.6 V at 0.5 msec with lead impedance of 781 ohms and sensed R waves of 12.1 mV. In the atrium, capture was not performed due to the presence of rapid atrial flutter. Sen sed flutter waves were 2.7 mV. Lead impedance was 496 ohms. COMPLICATIONS: None. DISPOSITION: The patient will be recovered in the CVC and returned to his room on telemetry. /[id number]/MODL
[2018-07-14] MEDS: ACETAMINOPHEN 325 MG TAB PO PRN (19:03)
[2018-07-14] MEDS ORDERED: BIMATOPROST 0.01% 2.5 ML OPHT.BTL EACHEYE SCH (21:00)
[2018-07-14] MEDS ORDERED: OMEGA-3 FATTY ACIDS 1,000 MG CAP PO SCH (21:00)
[2018-07-14] MEDS ORDERED: clonazePAM 0.5 MG TAB PO SCH (21:00)
[2018-07-14] MEDS: OXICONAZOLE NITRATE TP SCH (21:36)
[2018-07-14] MEDS: PROPAFENONE HCL SR 225 MG CAP PO SCH (21:36)
[2018-07-15] MEDS: ACETAMINOPHEN 325 MG TAB PO PRN ×2 (03:48→14:35)
[2018-07-15 04:57] LABS: INR 1.65 (0.83-1.16); PROTIME(PATIENT) 19.6 SEC (12.0-15.0)
[2018-07-15] MEDS ORDERED: [UNRECOGNIZED DRUG - MIXTURE] PO SCH (09:00)
[2018-07-15] MEDS: ALLOPURINOL 300 MG TAB PO SCH (09:44)
[2018-07-15] MEDS: DORZOLAMIDE 2% OPTH DROPS EACHEYE SCH (09:44)
[2018-07-15] MEDS: PROPAFENONE HCL SR 225 MG CAP PO SCH (09:44)
[2018-07-15] MEDS: EZETIMIBE 10 MG TAB PO SCH (09:44)
[2018-07-15] MEDS: OXICONAZOLE NITRATE TP SCH (09:45)
[2018-07-15] MEDS: COLESTIPOL HCL 1 GM TAB PO SCH (11:24)
[2018-07-15 11:27] VITALS: BP 130/76
--- NOTE | 2018-07-15 12:18 | SOAPPROG ---
[facility] Progress Note Assessment/Plan: Assessment: Plan: 07/14/18 09:24 Atrial fib/flutter: to be seen by cardiology today for cardioversion. On coumadin. INR 1.9 last night. Didn't get any coumadin yesterday. Has been on coumadin for about a week, but had been on Xarelto continuously for a month previously. Switched to coumadin due to cost but no interruption in anticoagulation. Hypertension: initially hypotensive in office yesterday but hasn't been since arrival. Home readings tend to be mildly hypertensive. No no BP medication. REM sleep disturbance: uses 2 clonazepam at night and brought these from home. Skin wound: would like dressing changed today. Dispo: needs ongoing hospitalization due to symptomatic arrhythmia. Anticipate further evaluation, intervention today, possibly to include SAMIRA prior to cardioversion. 07/14/18 09:26 07/14/18 09:35 07/14/18 09:42 07/14/18 09:43 07/14/18 09:45 07/14/18 09:53 07/15/18 12:17 Atrial flutter: s/p pacemaker placement, now on rhythmol. Remains in atrial flutter, rate controlled. To be seen by cardiology this morning, but anticipate d/c later today. Continue coumadin. Subjective: Feeling ok this morning. Had pacemaker placed yesterday. Remains if atrial flutter. Now on Rhythmol. Objective: Vital Signs Temp Pulse Resp BP Pulse Ox 36.4 C 70 16 130/76 H 97 07/15/18 09:40 07/15/18 11:26 07/15/18 11:26 07/15/18 11:26 07/15/18 11:26 07/14/18 07/15/18 07/16/18 05:59 05:59 05:59 Intake Total 300 200 Balance 300 200 PT 19.6 SEC (12.0-15.0) H 07/15/18 03:16 INR 1.65 (0.83-1.16) H 07/15/18 03:16 General: well-appearing, up in chair, pleasant Neck: no masses, adenopathy Lungs: clear Cardiovascular: RRR, no murmur Extremities: no edema ICD10 Worksheet Patient Problems: Problems Problem Status Onset Atrial fibrillation Acute C. difficile diarrhea Acute 11/04/15 Clostridium difficile infection Acute Dizziness Acute Lumbar back pain Acute Lumbar stenosis Acute
--- NOTE | 2018-07-15 12:39 | PDCARPN ---
Cardiology Progress Note Chief Complaint: s/p pacer Assessment/Plan: Assessment/Plan: Zackery is a 73 y/o M with a history of PAF and PAFL as well as SSS and symptomatic bradycardia. He is s/p [employer] pacemaker placed by Dr. Hilton on . He was also started on Rythmol with plans for a SAMIRA CV in 7 days. He denies any significant discomfort over his pacer site. A CXR was negative for pneumo. He is currently in flutter with a normally functioning device. Continue Coumadin. Plan for SAMIRA CV in [address] Hilton. 07/15/18 12:36 Subjective: He denies any significant discomfort over his pacer site. Reviewed/Discussed With: hospitalist Objective: Vital Signs (8 Hrs) Temp Pulse Resp BP Pulse Ox 07/15/18 11:26 70 16 130/76 H 97 07/15/18 09:40 36.4 C 70 16 113/73 98 Intake/Output (24 Hrs) 07/14/18 07/15/18 07/16/18 05:59 05:59 05:59 Intake Total 300 200 Balance 300 200 Intake: Oral (ml) 300 200 Other: Weight 94.4 kg Number of Voids Toilet 1 2 a.flutter rate controlled Telemetry: a.flutter rate controlled. - Physical Exam Constitutional: WDWN Cardiovascular: other (pacer site is clean intact without infection or hematoma) Neurologic: AAOx3 ICD10 Worksheet Patient Problems: Problems Problem Status Onset Atrial fibrillation Acute C. difficile diarrhea Acute 11/04/15 Clostridium difficile infection Acute Dizziness Acute Lumbar back pain Acute Lumbar stenosis Acute
--- NOTE | 2018-07-15 15:50 | ASDISCHSUM ---
Discharge Information Plan Status:Home with No Needs Medically Cleared to Leave:07/14/2018 Discharge Date:07/15/2018 02:43 PM CM D/C Disposition:Home, Routine, Self-Care ADT D/C Disposition:Home, Routine, Self-Care Projected Discharge Date:07/15/2018 02:43 PM Transportation at D/C: Discharge Delay Reason: Follow-Up Date:07/15/2018 02:43 PM Discharge Slot: Final Diagnosis: Placement Information Patient Contact Information Contact Name:DALIA Relationship: Address:[facility] City:[facility] Phone: [facility]/Zip Code:[place] [address] Email: Financial Information Financial Class:Medicare Primary Plan Desc:MEDICARE INPATIENT Primary Plan Number:[id number] Secondary Plan Desc:AARP/MDR SUPPLEMENT Secondary Plan Number:[id number] Assessment Information LACE LACE Length of stay for Answers: 1 day current admission Acuity / Level of Answers: Yes Care: Did the patient have an inpatient admission? Comorbidities - select Answers: Coronary Artery Disease all that apply Other Notes: AFib; HTN; HLD # of Emergency department Answers: 1-2 visits in the last 6 months Score: 8 Date Signed: 07/15/2018 03:48 PM Electronically Signed By:Teresa Thapa RN [facility] CM Progress Note CM Note CM Note Notes: 07/14/2018 Case Management Note Pt admitted for treatment of afib/flutter. Discussed with FARRAH this morning. Pt may have an ablation or may have a pacemaker. Tests are underway. There are no identified case management d/c needs identified d/t pt age, marital status, employment status and independence with ADL's prior to admission. There are no therapy evals ordered at this time. Case Management d/c poc: anticipating independent with follow up as directed. Case Management available if needs change. Date Signed: 07/14/2018 02:03 PM Electronically Signed By:Teresa Thapa RN Case Management Discharge Plan Note Case Management Discharge Discharge Order Complete? Answers: Yes Patient to Obtain Answers: via Family Medications Discharge Comments Notes: 07/15/2018 Case Management Note Pt discharged independent with follow up as directed. Date Signed: 07/15/2018 03:49 PM Electronically Signed By:Teresa Thapa RN Intervention Information Intervention Type:*Incorrect Registration Date of Service:07/13/2018 08:51 AM Patient Type:Inpatient Staff Member:FARRAH Wilson Amada Hours: Discipline: Severity: Comment:
[2018-07-15] MEDS ORDERED: WARFARIN SODIUM 5 MG TAB PO SCH (16:00)
--- NOTE | 2018-07-15 16:58 | CPEKG ---
Test Reason : OPEN Blood Pressure : / mmHG Vent. Rate : 070 BPM Atrial Rate : 081 BPM P-R Int : 071 ms QRS Dur : 144 ms QT Int : 469 ms P-R-T Axes : 000 258 057 degrees QTc Int : 507 ms Sinus rhythm Short TX interval Left bundle branch block Confirmed by Arnaldo Barlow ([id number]) on 07/15/2018 4:58:07 PM Referred By: Confirmed By:Arnaldo Barlow
--- NOTE | 2018-07-15 17:06 | CPEKG ---
Test Reason : OPEN Blood Pressure : / mmHG Vent. Rate : 075 BPM Atrial Rate : 125 BPM P-R Int : 062 ms QRS Dur : 090 ms QT Int : 375 ms P-R-T Axes : 000 -30 058 degrees QTc Int : 419 ms Afib/flut and V-paced complexes Left axis deviation Confirmed by Arnaldo Barlow ([id number]) on 07/15/2018 5:05:38 PM Referred By: Confirmed By:Arnaldo Barlow
== END 2018-07-15 14:43 | disposition home or self-care (01) | DRG 243 ==
LOC: F2W 16:50 → OBSVTOIN 18:16
PROVIDERS: ADMIT Internal Medicine; ATTEND Internal Medicine
DX: I49.5 Sick sinus syndrome (principal); I48.0 Paroxysmal atrial fibrillation; I48.92 Unspecified atrial flutter; S81.811D Laceration without foreign body, right lower leg, subsequent encounter; I10 Essential (primary) hypertension; I25.10 Atherosclerotic heart disease of native coronary artery without angina pectoris; E78.5 Hyperlipidemia, unspecified; M10.9 Gout, unspecified; Z79.01 Long term (current) use of anticoagulants
CPT/HCPCS: C1785; C1898; J0690; J2250; J3010; Q9967

== ENCOUNTER → 2018-07-21 | Day surgery (SDC) | payer OTHER, MEDICARE ==
[~2018-07-21] MED LIST: ATROPINE SULFATE 1 MG/10 ML SYR IVP ONE; BENZOCAINE UNIT DOSE SPRAY HURRICAINE MM ONE; MIDAZOLAM 2 MG/2 ML VIAL IVP ONE; NALOXONE HCL 0.4 MG/ML INJ IVP PRN; NS 500 ML IV ONE; PROPOFOL 200 MG/20 ML VIAL ONE; fentaNYL 100 MCG/2 ML INJ IVP ONE
[2018-07-21 08:32] LABS: INR 1.82 (0.83-1.16); PROTIME(PATIENT) 21.2 SEC (12.0-15.0)
--- NOTE | 2018-07-21 09:23 | PDANEPAE ---
ANE History of Present Illness Aflutter, here for SAMIRA and cardioversion ANE Past Medical History - Cardiovascular History Hx Hypertension: Yes Hx Arrhythmias: No Hx Chest Pain: No Hx Coronary Artery / Peripheral Vascular Disease: Yes Hx CHF / Valvular Disease: No Hx Palpitations: No Cardiovascular History Comment: AORTIC VALVE DX - Pulmonary History Hx COPD: No Hx Asthma/Reactive Airway Disease: No Hx Recent Upper Respiratory Infection: No Hx Oxygen in Use at Home: No Hx Sleep Apnea: Yes Pulmonary History Comment: MERYL - Neurologic History Hx Cerebrovascular Accident: No Hx Seizures: No Hx Dementia: No - Endocrine History Hx Diabetes: No - Renal History Hx Renal Disorders: No - Liver History Hx Hepatic Disorders: No - Neurological & Psychiatric Hx Hx Neurological and Psychiatric Disorders: Yes Neurological / Psychiatric History Comment: VISUAL MIGRAINES - Cancer History Hx Cancer: No - Congenital Disorder History Hx Congenital Disorders: No - GI History Hx Gastrointestinal Disorders: No Gastrointestinal History Comment: INTERMITTENT CONSTIPATION - Other Health History Other Health History: GLAUCOMA. SCIATICA. PSORIASIS. DVT/PE 10/2013 AFTER LONG FLIGHT. TREATED WITH RX FOR 12 MONTHS - Chronic Pain History Chronic Pain: No (LT CALF) - Surgical History Prior Surgeries: LAMINECTOMY L5-S-1. T&A. GUM SURGERY ANE Review of Systems Review of Systems: ANE Patient History - Allergies Allergies/Adverse Reactions: Sulfa (Sulfonamide Antibiotics) Allergy (Verified 06/03/18 15:13) sulfamethoxazole [From Bactrim] Allergy (Verified 06/03/18 15:13) trimethoprim [From Bactrim] Allergy (Verified 06/03/18 15:13) - Home Medications Home Medications: Allopurinol [Allopurinol 300 MG (RX)] 300 mg PO DAILY 07/24/15 [Last Taken 07/13] Bimatoprost 0.01% [Lumigan 0.01% (*)] 1 drop EACHEYE HS 07/24/15 [Last Taken 08/17] Colestipol HCl [Colestid (*)] 3 gm PO BID 07/24/15 [Last Taken 07/13/18 09:00] Ezetimibe [Zetia 10 MG (*)] 10 mg PO DAILY 07/24/15 [Last Taken 07/13/18] Herbals/Supplements -Info Only 1 ea PO DAILY 06/03/18 [Last Taken Unknown] [place]-3 Fatty Acids [Fish Oil 1000 mg (*)] 4,000 mg PO HS 06/03/18 [Last Taken 07/13/18] clonazePAM [Clonazepam] 0.5 mg PO HS 06/03/18 [Last Taken 07/12/18] Dorzolamide 2% [Trusopt 2% (*)] 1 drops EACHEYE BID 07/13/18 [Last Taken 09:00] Oxiconazole Nitrate [OXISTAT] 1 terence TP BID 07/13/18 [Last Taken 07/13/18 09:00] Pregabalin [Lyrica 50mg (*)] 50 mg PO HS PRN 07/13/18 [Last Taken Unknown] Warfarin Sodium [Coumadin 5MG (*)] 5 mg PO Q2D@16 07/13/18 [Last Taken 07/11/18] Warfarin Sodium [Coumadin 5MG (*)] 7.5 mg PO Q2D@16 07/13/18 [Last Taken ] Calcium 1g Alive Supplement 1 each PO DAILY 07/14/18 [Last Taken Unknown] - Smoking Hx Smoking Status: Former smoker ANE Labs/Vital Signs - Labs Result Diagrams: 07/21/18 08:05 - Vital Signs Height: 183 cm Weight: 94.347 kg ANE Physical Exam - Airway Neck exam: FROM Mallampati Score: Class 2 Mouth exam: normal dental/mouth exam - Pulmonary Pulmonary: no respiratory distress - Cardiovascular Cardiovascular: irregularly irregular - ASA Status ASA Status: III ANE Anesthesia Plan Anesthesia Plan: GA with mask Total IV Anesthesia: Yes
--- NOTE | 2018-07-21 13:38 | ECHO ---
[email or web address] [address] [address] Main: [phone] Fax: Transesophageal Echocardiography Name: MICHAEL HORNER MR#: [id number] Study Date: 07/21/2018 Study Time: 09:24 AM Date of : 1945 Age: 73 year(s) Height: ( ) Weight: ( ) BSA: Gender: Male Examination: SAMIRA Indication: Pre Cardioversion Image Quality: Contrast: Requested by: Herson Hilton Heart Rate: Rhythm: BP: / Procedure Staff Warehouse Logistics Coordinator: Reed Morgan RDCS Reading Physician: Herson Hilton MD Requesting Provider: SAMIRA Exam Details Conclusions: Normal size left ventricle. Normal global systolic LV function. The ejection fraction is visually estimated to be 60 %. No regional wall motion abnormality. There is a pacemaker lead noted in the right ventricle. No thrombus in left appendage. Mild to moderate mitral regurgitation. Mild to moderate aortic valve regurgitation. Mild tricuspid regurgitation is present. Proceeded with successful elective DC cardioversion.. Measurements: Chambers Valvular Assessment AV/MV Valvular Assessment TV/PV Normal Normal Normal Name Value Range Name Value Range Name Value Range Visual EF: 60 % Additional Measurements: Findings: Left Ventricle: Normal size left ventricle. Normal global systolic LV function. The ejection fraction is visually estimated to be 60 %. No regional wall motion abnormality. Patient: MICHAEL HORNER Study Date: 07/21/2018 Page 1 of 2 09:24 AM Right Ventricle: Normal RV function. There is a pacemaker lead noted in the right ventricle. Left Atrial Appendage: No thrombus in left appendage. Right Atrium: The right atrium is normal in size. Mitral Valve: The mitral valve is normal in appearance. Mild to moderate mitral regurgitation. Aortic Valve: The aortic valve is tri-leaflet. Mild to moderate aortic valve regurgitation. Tricuspid Valve: The tricuspid valve appears normal. Mild tricuspid regurgitation is present. Pulmonic Valve: The pulmonic valve is normal in appearance and function. Aorta: The aorta is normal. Pericardium: No pericardial effusion. Exam Comments: Proceeded with successful elective DC cardioversion.. l1n (No Signature Object) Patient: MICHAEL HORNER Study Date: 07/21/2018 Page 2 of 2 09:24 AM [id number]
--- NOTE | 2018-07-21 19:30 | CPEKG ---
Test Reason : OPEN Blood Pressure : / mmHG Vent. Rate : 076 BPM Atrial Rate : 076 BPM P-R Int : 283 ms QRS Dur : 159 ms QT Int : 428 ms P-R-T Axes : 055 -25 156 degrees QTc Int : 482 ms Sinus rhythm Prolonged NM interval Left bundle branch block Confirmed by Celina Massey ([id number]) on 07/21/2018 7:29:46 PM Referred By: Confirmed By:Celina Massey
--- NOTE | 2018-07-21 19:30 | CPEKG ---
Test Reason : OPEN Blood Pressure : / mmHG Vent. Rate : 070 BPM Atrial Rate : 070 BPM P-R Int : 064 ms QRS Dur : 162 ms QT Int : 450 ms P-R-T Axes : 000 270 077 degrees QTc Int : 486 ms Ventricular-paced complexes Nonspecific IVCD with LAD, probable LBBB Left ventricular hypertrophy Probable inferior infarct, acute Anterolateral infarct, old Confirmed by Celina Massey ([id number]) on 07/21/2018 7:29:29 PM Referred By: Confirmed By:Celina Massey
--- NOTE | 2018-07-22 12:42 | GDS ---
DISCHARGE DIAGNOSES: Atrial fibrillation/flutter, sick sinus syndrome, hypotension. CONSULTATIONS: Cardiology, Dr. Hilton. HOSPITAL COURSE: The patient is a 73-year-old male with a history of atrial fibrillation, atrial flu tter and sick sinus syndrome with symptomatic bradycardia, who was seen in the office on the day of a dmission for a PT/INR. He was feeling very fatigued and was noted to be hypotensive and in atrial fi brillation. He was subsequently admitted to the hospital to Telemetry and a cardiology consult was o btained the following day. Pacemaker was placed due to symptomatic bradycardia. He continued to hav e underlying atrial fibrillation/flutter following pacemaker placement. He was started on Rythmol wi th plans for SAMIRA and cardioversion in 1 week's time as an outpatient. The patient was able to discha rge to home in good condition. MEDICATIONS ON DISCHARGE: Zetia 10 mg daily, allopurinol 300 mg daily, colestipol 3 g twice daily, L umigan 0.01% 1 drop in each eye at bedtime, clonazepam 0.5 mg at bedtime, fish oil, Tylenol as needed , Trusopt 2% eyedrops 1 drop in each eye twice a day, Oxistat 1 application twice daily, Lyrica 50 mg at bedtime as needed, warfarin 7.5 mg daily alternating with 5 mg daily, calcium, 225 mg twice daily. /[id number]/MODL
== END | disposition home or self-care (01) ==
LOC: FCATH 07:42
PROVIDERS: ATTEND Internal Medicine Cardiovascular Disease
PROC: 5A2204Z Restoration of Cardiac Rhythm, Single (ICD-10-PCS; principal; 2018-07-21)
DX: I48.92 Unspecified atrial flutter (principal); I48.91 Unspecified atrial fibrillation; I08.3 Combined rheumatic disorders of mitral, aortic and tricuspid valves; I49.5 Sick sinus syndrome; R00.1 Bradycardia, unspecified; I10 Essential (primary) hypertension; G47.33 Obstructive sleep apnea (adult) (pediatric); Z79.01 Long term (current) use of anticoagulants; Z95.0 Presence of cardiac pacemaker; Z86.718 Personal history of other venous thrombosis and embolism; Z86.711 Personal history of pulmonary embolism; Z87.891 Personal history of nicotine dependence
CPT/HCPCS: J2704

== ENCOUNTER → 2018-07-28 | Outpatient (CLI) | payer OTHER, MEDICARE | LOC: BHFA 13:00 | PROVIDERS: ATTEND Internal Medicine Cardiovascular Disease | DX: I48.0 Paroxysmal atrial fibrillation (principal); I49.5 Sick sinus syndrome; Z95.0 Presence of cardiac pacemaker ==

== ENCOUNTER 2018-10-15 12:08 | Day surgery (SDC) | payer OTHER, MEDICARE ==
[2018-10-15] MEDS ORDERED: MIDAZOLAM 2 MG/2 ML VIAL IVP ONE (12:13)
[2018-10-15] MEDS ORDERED: ATROPINE SULFATE 1 MG/10 ML SYR IVP ONE (12:13)
[2018-10-15] MEDS ORDERED: fentaNYL 100 MCG/2 ML INJ IVP ONE (12:13)
[2018-10-15] MEDS ORDERED: BENZOCAINE UNIT DOSE SPRAY HURRICAINE MM ONE (12:13)
[2018-10-15] MEDS ORDERED: NS 500 ML IV ONE (12:13)
--- NOTE | 2018-10-18 21:59 | CPEKG ---
Test Reason : OPEN Blood Pressure : / mmHG Vent. Rate : 061 BPM Atrial Rate : 063 BPM P-R Int : 181 ms QRS Dur : 097 ms QT Int : 394 ms P-R-T Axes : 000 -14 -48 degrees QTc Int : 397 ms Atrial-paced rhythm Borderline T abnormalities, diffuse leads Confirmed by Herson Hilton ([id number]) on 10/18/2018 9:58:31 PM Referred By: Herson Hilton Confirmed By:Herson Hilton
== END 2018-10-15 13:25 | disposition home or self-care (01) ==
LOC: FCATH 12:08
PROVIDERS: ATTEND Internal Medicine Cardiovascular Disease
DX: Z53.8 Procedure and treatment not carried out for other reasons (principal); R53.83 Other fatigue; R42 Dizziness and giddiness; I10 Essential (primary) hypertension; I35.1 Nonrheumatic aortic (valve) insufficiency; I25.10 Atherosclerotic heart disease of native coronary artery without angina pectoris; Z95.0 Presence of cardiac pacemaker; Z79.01 Long term (current) use of anticoagulants